=== PATIENT | female | born 1950 | race Two or more races ===

== ENCOUNTER → 2016-11-13 | Outpatient (CLI) | payer MEDICARE, OTHER ==
--- NOTE | 2016-11-13 10:11 | RADRPT ---
PROCEDURE: Pelvis x-ray with AP and frog-leg views of both hips. CLINICAL INDICATION: Pain. TECHNIQUE: Single AP view of the pelvis performed with AP and frog-leg views of the right and left hips. COMPARISON: None FINDINGS: There is a popcorn calcification in the pelvis. There are degenerative changes at the lumbosacral j unction. There is mild narrowing of the hip joints which remain symmetric. There is mild irregular ity of the acetabula. IMPRESSION: 1. Bilateral degenerative facet arthropathy at L5-S1. 2. 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 3. 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 RPTAT:AAJJ Physician Go Date Time Electronically viewed and signed by [place] Physician on 11/13/2016 10:11 JUAN/
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
== END | disposition home or self-care (01) ==
LOC: HKI 09:58
DX: G89.29 Other chronic pain (principal); M54.5 Low back pain; E03.9 Hypothyroidism, unspecified
CPT/HCPCS: 73522; G0463